=== PATIENT | male | born 1955 | race Caucasian/White ===

== ENCOUNTER 2022-01-27 07:27 | Emergency (ER) | payer OTHER ==
[~2022-01-27] VITALS: Ht 182.9 cm; Wt 101.6 kg
[2022-01-27 07:27] VITALS: BP_SYST 159
[~2022-01-27 07:27] MED LIST: DIPH25CA83 PO; INSNLG7030 SUBCUT; LISI10TA29 PO
--- NOTE | 2022-01-27 07:27 | NUR ---
BROUGHT IN BY [facility], PLACED IN BED #7 AND TRIAGED. REPORT GIVEN TO EMILY
--- NOTE | 2022-01-27 07:57 | NUR ---
Assumed care of pt who was BIBA c/o pain and weakness r/t mechanical fall this morning approx 0700. Pt states he has a hx of TII DM, and hypertension. Fall was witnessed by . Denies n/v/LOC. Post bilateral hip replacements; the right hip replaced 12/08/21. Patient appears in no acute distress at this time. Is A&Ox4, calm and cooperative. States pain is 8/10. Will provide care as ordered.
--- NOTE | 2022-01-27 08:03 | NUR ---
ER Dr. Quijano at bedside examining patient.
[2022-01-27] MEDS ORDERED: KETOROLAC TROMETHAMINE 60 MG/2 ML VIAL IM ONE ×2 (08:30)
[2022-01-27] MEDS ORDERED: NAPR-1172 PO (10:43)
--- NOTE | 2022-01-27 10:48 | NUR ---
Patient given written and verbal discharge instructions and verbalizes understanding. ER Dr. Macie RAI discussed with patient the results and treatment provided. Patient in stable condition. ID arm band removed. Rx of Naproxen given. Patient educated on pain management and to follow up with PMD. Pain Scale 5/10. Opportunity for questions provided and answered. Medication side effect fact sheet provided.
== END 2022-01-27 10:48 | disposition home or self-care (01) ==
LOC: SED 07:27
DX: S09.90XA Unspecified injury of head, initial encounter (principal); S83.92XA Sprain of unspecified site of left knee, initial encounter; S83.91XA Sprain of unspecified site of right knee, initial encounter; S43.402A Unspecified sprain of left shoulder joint, initial encounter; S50.811A Abrasion of right forearm, initial encounter; Z88.8 Allergy status to other drugs, medicaments and biological substances; W18.30XA Fall on same level, unspecified, initial encounter; Y93.89 Activity, other specified; Y92.89 Other specified places as the place of occurrence of the external cause; Y99.8 Other external cause status
CPT/HCPCS: 73020; 73100; 73560; 70450; 72125; 76376; 99284; 96372; J1885